=== PATIENT | female | born 1995 | race Caucasian/White ===

== ENCOUNTER 2023-03-20 14:22 | Emergency (ER) | payer OTHER, SELFPAY ==
--- NOTE | 2023-03-20 14:45 | DI.CT.S_ITS ---
PROCEDURE: CT HEAD/BRAIN WO CON INDICATIONS: injury TECHNIQUE: Noncontrast 4.5 mm thick angled axial sections acquired from the foramen magnum to the vertex, with coronal and sagittal reformats. For radiation dose reduction, the following was used: automated exposure control, adjustment of mA and/or kV according to patient size. COMPARISON: None. FINDINGS: Image quality: Excellent. CSF spaces: Basal cisterns are patent. No extra-axial fluid collections. Ventricles are normal in size and shape. Brain: No midline shift. No intracranial masses or hemorrhage. Cagle-white matter interface is normal. There are deep white matter hypodensities present which are greater than expected for patient age. For instance, on image 16/2 is a hypodensity in the left posterior deep white matter measuring 9 mm. On image 19/2 are 2 separate left deep white matter hypodensities, measuring 9 mm and 7 mm respectively. Skull and face: Calvarium and visualized facial bones are intact, without suspicious lesions. Sinuses: Visualized sinuses and mastoids are clear. IMPRESSION: 1. No acute intracranial process suspected. 2. Left deep white matter hypodensities are not typically seen in this patient age. This raises the question of a possible demyelinating disorder. Comment: Consider brain MRI with without contrast to rule out a demyelinating disorder. This would not necessarily need to be obtained on an emergent basis. Dictated by: Krik Tang M.D. on 03/20/2023 at 15:32 Approved by: Kirk Tang M.D. on 03/20/2023 at 15:35
--- NOTE | 2023-03-20 14:45 | DI.CT.S_ITS ---
PROCEDURE: CT CERVICAL SPINE WO CON INDICATIONS: injury TECHNIQUE: Noncontrast 3 mm thick sections acquired from the skull base to the T4 level. Sagittal and coronal reformats were then constructed. For radiation dose reduction, the following was used: automated exposure control, adjustment of mA and/or kV according to patient size. COMPARISON: None. FINDINGS: Image quality: Excellent. Bones: No fractures or dislocations. Visualized superior ribs are intact. Soft tissues: Prevertebral soft tissues are normal in thickness. No paravertebral hematomas. No apical pneumothoraces. IMPRESSION: No evidence acute cervical fracture or dislocation. Dictated by: Kirk Tang M.D. on 03/20/2023 at 15:54 Approved by: Kirk Tang M.D. on 03/20/2023 at 15:55
[2023-03-20 14:46] VITALS: BP 120/56; PULSE 71; RESP 16; TEMP 36.1; O2SAT 100
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
== END 2023-03-20 16:25 | disposition home or self-care (01) ==
PROVIDERS: Emergency Provider Nurse Practitioner Critical Care Medicine
DX: F07.81 Postconcussional syndrome (principal); S09.8XXA Other specified injuries of head, initial encounter; V19.3XXA Pedal cyclist (driver) (passenger) injured in unspecified nontraffic accident, initial encounter
CPT/HCPCS: 70450; 72125; 99283